=== PATIENT | female | born 1990 | race American Indian/Alaskan Native ===

== ENCOUNTER 2018-01-10 14:06 | Emergency (ER) | payer SELFPAY ==
[2018-01-10 16:02] LABS: Amorphous Crystals,Urine Few; Bilirubin,Urine NEG (Negative); Blood,Urine SM (Negative); Color,Urine Yellow (Yellow); Mucus,Urine 3+ /HPF; Protein,Urine <15 mg/dL mg/dL (Negative)
--- NOTE | 2018-01-10 17:12 | Emergency Department Report ---
<PRISCILA GARCIA - Last Filed: 01/10/18 17:11> ED General Adult HPI - General Chief complaint: Abdominal Pain Stated complaint: LOWER ABD PAIN Time Seen by Provider: 01/10/18 16:38 Source: patient Mode of arrival: Ambulatory Limitations: No Limitations - History of Present Illness Initial comments: Patient complains of right lower quadrant abdominal pain 4 days. Patient describes the pain as sharp in nature without radiation. Patient has no other complaints -: Gradual Radiation: abdomen Severity scale (0 -10): 1 Quality: sharp Consistency: constant Improves with: none Worsens with: none Associated Symptoms: denies other symptoms Treatments Prior to Arrival: none - Related Data Previous Rx's Medication Instructions Recorded Last Taken Type metroNIDAZOLE [Metronidazole] 500 mg PO TID 7 Days #21 tablet 01/10/18 Unknown Rx Allergies Allergy/AdvReac Type Severity Reaction Status Date / Time No Known Allergies Allergy Unverified 01/10/18 14:11 ED Review of Systems ROS: Stated complaint: LOWER ABD PAIN Other details as noted in HPI Comment: All other systems reviewed and negative Constitutional: denies: chills, fever Eyes: denies: eye pain, eye discharge, vision change ENT: denies: ear pain, throat pain Respiratory: denies: cough, shortness of breath, wheezing Cardiovascular: denies: chest pain, palpitations Endocrine: no symptoms reported Gastrointestinal: denies: abdominal pain, nausea, diarrhea Genitourinary: denies: urgency, dysuria, discharge Musculoskeletal: denies: back pain, joint swelling, arthralgia Skin: denies: rash, lesions Neurological: denies: headache, weakness, paresthesias Psychiatric: denies: anxiety, depression Hematological/Lymphatic: denies: easy bleeding, easy bruising ED Past Medical Hx - Past Medical History Previous Medical History?: No - Surgical History Past Surgical History?: No - Social History Smoking Status: Never Smoker Substance Use Type: Marijuana - Medications Home Medications: Home Medications Medication Instructions Recorded Confirmed Last Taken Type metroNIDAZOLE [Metronidazole] 500 mg PO TID 7 Days #21 tablet 01/10/18 Unknown Rx ED Physical Exam - General Limitations: No Limitations General appearance: alert, in no apparent distress - Head Head exam: Present: atraumatic, normocephalic - Eye Eye exam: Present: normal appearance, PERRL, EOMI - ENT ENT exam: Present: mucous membranes moist - Neck Neck exam: Present: normal inspection - Respiratory Respiratory exam: Present: normal lung sounds bilaterally. Absent: respiratory distress, wheezes, rales, rhonchi - Cardiovascular Cardiovascular Exam: Present: regular rate, normal rhythm. Absent: systolic murmur, diastolic murmur, rubs, gallop - GI/Abdominal GI/Abdominal exam: Present: soft, distended, tenderness (RLQ TTP), normal bowel sounds - Extremities Exam Extremities exam: Present: normal inspection - Back Exam Back exam: Present: normal inspection - Neurological Exam Neurological exam: Present: alert, oriented X3 - Psychiatric Psychiatric exam: Present: normal affect, normal mood - Skin Skin exam: Present: warm, dry, intact, normal color. Absent: rash ED Course Vital Signs 01/10/18 01/10/18 14:12 21:29 Temperature 97.9 F 97.9 F Pulse Rate 75 62 Respiratory 18 18 Rate Blood Pressure 127/82 Blood Pressure 114/71 [Left] O2 Sat by Pulse 100 100 Oximetry Critical care attestation.: If time is entered above; I have spent that time in minutes in the direct care of this critically ill patient, excluding procedure time. ED Disposition Clinical Impression: Right lower quadrant abdominal pain, Bacterial vaginosis Disposition: - TO HOME OR SELFCARE Condition: Stable Instructions: Abdominal Pain (ED), Bacterial Vaginosis (ED) Additional Instructions: Please complete antibiotics as prescribed. If your symptoms persist or gets worse please follow up with her primary care provider or return back to the emergency room for reevaluation. Prescriptions: metroNIDAZOLE [Metronidazole] 500 mg PO TID 7 Days #21 tablet Referrals: PRIMARY CARE, [Primary Care Provider] - 3-5 Days [facility] [Provider Group] - 3-5 Days Forms: STI Treatment and Prevention <BAKARI ODOM - Last Filed: 01/11/18 05:14> ED General Adult HPI - History of Present Illness Initial comments: Patient's been evaluated by this provider in fast track. Patient complains of right lower quadrant abdominal pain for 4 days. Patient reports she is also having vaginal discharge. She reports that her abdominal pain is crampy and when it comes she feels like the vaginal secretions comes down. Patient denies any nausea vomiting no fever or chills. ED Physical Exam - GI/Abdominal GI/Abdominal exam: Present: tenderness - External exam: Present: normal external exam Speculum exam: Present: vaginal discharge. Absent: erythema Bi-manual exam: Present: adnexal tenderness (right). Absent: cervical motion tendernes, adnexal mass, uterine enlargement, uterine tenderness ED Medical Decision Making - Lab Data Result diagrams: 01/10/18 19:18 01/10/18 19:18 - Radiology Data FINAL REPORT PROCEDURE: CT ABDOMEN PELVIS WO CON TECHNIQUE: Computerized axial tomography of the abdomen and pelvis was performed without intravenous contrast. This study is performed without intravascular contrast material and its sensitivity for abdominal and pelvic pathology, including neoplasms, inflammation, abscess, free fluid, thrombosis, arterial dissection and infarction, is reduced compared with a contrast enhanced study. HISTORY: RLQ ab pain COMPARISON: No prior studies are available for comparison. FINDINGS: Lower Lung villa: No focal abnormality seen. Upper Abdomen: The liver, the gallbladder, the adrenal glands, the pancreas in the spleen are unremarkable. Kidneys, Ureters and Urinary bladder: Kidneys and ureters are unremarkable. Urinary bladder is only partially filled and difficult to characterize although appears grossly unremarkable. Retroperitoneum: Abdominal aorta appears normal. Nonspecific subcentimeter lymph nodes are seen in the retroperitoneum. No pathologically enlarged lymph nodes are identified. There are however clustered lymph nodes visualized in the mesentery medial to the cecum. I cannot exclude mesenteric adenitis. These measure up to 13 millimeters x 9.5 millimeters. These are best visualized on the coronal reconstructions. Bowel: No focal abnormalities are identified. There is no evidence of bowel obstruction or ascites. There is no free intraperitoneal gas. Normal-appearing appendix is seen in the right lower quadrant directed medially. Reproductive organs: Uterus and adnexa are unremarkable. Small amount of nonspecific free fluid is present in the cul-de-sac. Other: No acute bony abnormalities are identified. IMPRESSION: Cluster of nonspecific lymph nodes seen medial to the cecum. This can be seen with mesenteric adenitis. No other abnormalities are identified.. Transcribed By: AARON Dictated By: CAN BEACH MD Electronically Authenticated By: CAN BEACH MD Signed Date/Time: 01/10/182042 DD/ 42 TD/TT: 01/10/182042 - Medical Decision Making Patient's been evaluated but this provider as well as Dr. Garcia. CBC CMP CT was ordered and completed. CT showed some cecal adenopathy consistent with mesenteric adenitis. Pelvic exam done by this provider patient had copious amount of white milky vaginal discharge with a slight odor Cultures were obtained and sent to lab Microbiology came back greater than 20% for clue cells. Will treat patient for bacterial vaginosis. Discussed the patient she continues to have right pelvic pain to follow up with her primary care provider or return to the emergency room for reevaluation. ED Disposition Is pt being admited?: No Does the pt Need Aspirin: No
[2018-01-10 19:39] LABS: HCG Qualitative,Urine Negative (Negative)
[2018-01-10 19:43] LABS: Basophils % (Auto) 0.5 % (0.0-1.8); Eosinophils # (Auto) 0.2 K/mm3 (0.0-0.4); Hemoglobin 13.2 gm/dl (10.1-14.3); Lymphocytes % (Auto) 28.2 % (13.4-35.0); Mean Corpuscular HGB Conc 34 % (30-34); Mean Corpuscular Hemoglobin 32 pg (28-32); Mean Corpuscular Volume 94 fl (79-97); Monocytes # (Auto) 0.6 K/mm3 (0.0-0.8); Monocytes % (Auto) 5.4 % (0.0-7.3); Platelet Count 273 K/mm3 (140-440); Red Blood Count 4.16 M/mm3 (3.65-5.03); Red Cell Distribution Width 12.7 % (13.2-15.2)
[2018-01-10 20:03] LABS: Alanine Aminotransferase 8 units/L (7-56); Albumin 4.6 g/dL (3.9-5); BUN/Creatinine Ratio 17; Blood Urea Nitrogen 12 mg/dL (7-17); Calcium 9.7 mg/dL (8.4-10.2); Hemolysis Index 0
--- NOTE | 2018-01-10 20:43 | Cat Scan Report ---
FINAL REPORT PROCEDURE: CT ABDOMEN PELVIS WO CON TECHNIQUE: Computerized axial tomography of the abdomen and pelvis was performed without intravenous contrast. This study is performed without intravascular contrast material and its sensitivity for abdominal and pelvic pathology, including neoplasms, inflammation, abscess, free fluid, thrombosis, arterial dissection and infarction, is reduced compared with a contrast enhanced study. HISTORY: RLQ ab pain COMPARISON: No prior studies are available for comparison. FINDINGS: Lower Lung villa: No focal abnormality seen. Upper Abdomen: The liver, the gallbladder, the adrenal glands, the pancreas in the spleen are unremarkable. Kidneys, Ureters and Urinary bladder: Kidneys and ureters are unremarkable. Urinary bladder is only partially filled and difficult to characterize although appears grossly unremarkable. Retroperitoneum: Abdominal aorta appears normal. Nonspecific subcentimeter lymph nodes are seen in the retroperitoneum. No pathologically enlarged lymph nodes are identified. There are however clustered lymph nodes visualized in the mesentery medial to the cecum. I cannot exclude mesenteric adenitis. These measure up to 13 millimeters x 9.5 millimeters. These are best visualized on the coronal reconstructions. Bowel: No focal abnormalities are identified. There is no evidence of bowel obstruction or ascites. There is no free intraperitoneal gas. Normal-appearing appendix is seen in the right lower quadrant directed medially. Reproductive organs: Uterus and adnexa are unremarkable. Small amount of nonspecific free fluid is present in the cul-de-sac. Other: No acute bony abnormalities are identified. IMPRESSION: Cluster of nonspecific lymph nodes seen medial to the cecum. This can be seen with mesenteric adenitis. No other abnormalities are identified..
[2018-01-10 21:31] VITALS: BP 114/71
== END 2018-01-10 23:19 | disposition home or self-care (01) ==
LOC: ED 14:06
DX: N76.0 Acute vaginitis (principal); B96.89 Other specified bacterial agents as the cause of diseases classified elsewhere; F12.10 Cannabis abuse, uncomplicated
CPT/HCPCS: 36415; 74176; 80053; 81001; 81025; 85025; 87210; 87591; 99284